=== PATIENT | male | born 1995 | race Caucasian/White ===

== ENCOUNTER 2019-02-17 11:41 | Emergency (ER) | payer OTHER ==
[~2019-02-17] VITALS: Ht 175 cm; Wt 57.0 kg
[2019-02-17] MEDS ORDERED: LACTATED RINGERS 1,000 ML IV ONE ×2 (12:19→13:34)
[2019-02-17 12:26] LABS: BASOPHILS % (AUTO) 0 % (0-10); EOSINOPHILS % (AUTO) 0 % (0-10); HEMATOCRIT 45 % (40-54); HEMOGLOBIN 16.1 G/DL (13.3-17.7); LYMPHOCYTES # (AUTO) 0.8 X 10^3 (1.0-4.0); LYMPHOCYTES % (AUTO) 4 % (12-44); MEAN CORPUSCULAR HEMOGLOBIN 30 PG (25-34); MEAN CORPUSCULAR HGB CONC 36 G/DL (32-36); MEAN CORPUSCULAR VOLUME 84 FL (80-99); MEAN PLATELET VOLUME 9.9 FL (7.4-10.4); MONOCYTES % (AUTO) 5 % (0-12); NEUTROPHILS # (AUTO) 20.3 X 10^3 (1.8-7.8); NEUTROPHILS % (AUTO) 92 % (42-75); PLATELET COUNT 229 10^3/uL (130-400); RED CELL DISTRIBUTION WIDTH 12.4 % (10.0-14.5); WHITE BLOOD COUNT 22.2 10^3/uL (4.3-11.0)
[2019-02-17 12:33] LABS: INR 1.1 (0.8-1.4); PROTHROMBIN TIME PATIENT 14.6 SEC (12.2-14.7)
[2019-02-17 12:40] LABS: ALANINE AMINOTRANSFERASE 14 U/L (0-55); ALBUMIN 4.9 GM/DL (3.2-4.5); ALKALINE PHOSPHATASE 67 U/L (40-136); BILIRUBIN,TOTAL 0.9 MG/DL (0.1-1.0); BUN/CREATININE RATIO 14; CALCIUM 9.9 MG/DL (8.5-10.1); CARBON DIOXIDE 18 MMOL/L (21-32); CHLORIDE 100 MMOL/L (98-107); CREATININE SERUM 1.01 MG/DL (0.60-1.30); GFR ESTIMATED > 60; GLUCOSE 103 MG/DL (70-105); POTASSIUM 3.6 MMOL/L (3.6-5.0); SODIUM 131 MMOL/L (135-145); TOTAL PROTEIN 8.7 GM/DL (6.4-8.2)
--- NOTE | 2019-02-17 12:42 | ED General ---
General Chief Complaint: Fever-Adult/Adol Stated Complaint: FEVER/NECK PAIN Nursing Triage Note: PT STATES HAS FEVER UP TO 103 LAST PM, PT STATES WAS SENT TO ED FROM URGENT CARE FOR POSS MENINGITIS. PT DENIES NECK PAIN BUT HAS STIFFNESS. HAS TAKEN TYLENOL AND MOTRN THIS AM. DENIES SORETHROAT COUGH OR URINARY SX. PT W MASK ON. PT STATES HAS HAD DIARRHEA X 3 TODAY Nursing Sepsis Screen: No Definite Risk Source of Information: Patient Exam Limitations: No Limitations (AARTI CRYSTAL STUDENT) History of Present Illness Date Seen by Provider: Feb 17, 2019 Time Seen by Provider: 12:30 Initial Comments The patient is a wd/wn thin 23 y/o male who is here with a chief complaint of fever. The patient reports that he had a temperature of 103 last night. He was seen at the walk-in clinic and referred to the ER for possible meningitis. He has been experiencing chills and headache with nausea and diarrhea. He also reports that he was "a little out of it" last night and feels "loopy" today. He also reports mild neck stiffness but moves his neck in all directions freely without pain. He denies any recent sick contacts. He denies vision changes, confusion, abdominal pains, shortness of breath, cough, or rashes. The denies any recent tick bites but does mention that he [place] a great deal of [place] in [place]. Timing/Duration: 12-24 Hours Associated Systoms: No Cough; Fever/Chills, Headaches, Malaise, Nausea/Vomiting; No Rash, No Shortness of Air (AARTI CRYSTAL STUDENT) Timing/Duration: 12-24 Hours Severity: Moderate Associated Systoms: Fever/Chills, Headaches, Weakness (CEE CARTER MD) Allergies and Home Medications Allergies Coded Allergies: No Known Drug Allergies (Unverified , 02/17/19) Patient Home Medication List Home Medication List Reviewed: Yes (CEE CARTER MD) Review of Systems Review of Systems Constitutional: chills, fever, malaise EENTM: No blurred vision, No double vision Respiratory: No cough, No short of breath Cardiovascular: No chest pain, No palpitations Gastrointestinal: No abdominal pain; diarrhea Genitourinary: No dysuria, No frequency Skin: No pruritus, No rash (AARTI CRYSTAL STUDENT) Constitutional: see HPI Respiratory: no symptoms reported Cardiovascular: no symptoms reported Gastrointestinal: diarrhea, nausea Psychiatric/Neurological: Headache; Denies Weakness (CEE CARTER MD) All Other Systems Reviewed Negative Unless Noted: Yes (CEE CARTER MD) Past Fjywpet-Wjsiyt-Qilsjj Hx Past Med/Social Hx: Reviewed Nursing Past Med/Soc Hx (CEE CARTER MD) Patient Social History Alcohol Use: Occasionally Uses Recreational Drug Use: No Smoking Status: Never a Smoker Recent Foreign Travel: No Contact w/Someone Who Travel: No Recent Infectious Disease Expo: No Recent Hopitalizations: No (AARTI CRYSTAL STUDENT) Seasonal Allergies Seasonal Allergies: Yes (AARTI CRYSTAL) Past Medical History Surgeries: No (FOOT SURG) (AARTI CRYSTAL STUDENT) Family Medical History Reviewed Nursing Family Hx (CEE CARTER MD) No Pertinent Family Hx (CEE CARTER MD) Physical Exam Vital Signs Vital Signs - First Documented 02/17/19 12:16 Temp 36.7 Pulse 137 Resp 18 B/P (MAP) 97/77 (84) Pulse Ox 99 (CEE CARTER MD) Vital Signs Capillary Refill : Less Than 3 Seconds (AARTI CRYSTAL STUDENT) Height, Weight, BMI Height: '" Weight: lbs. oz. kg; 18.00 BMI Method: General Appearance: No Apparent Distress, WD/WN Eyes: Bilateral Eye PERRL, Bilateral Eye EOMI HEENT: PERRL/EOMI, TMs Normal; No Photophobia Neck: Full Range of Motion, Non Tender Respiratory: Chest Non Tender, Lungs Clear, Normal Breath Sounds Cardiovascular: Regular Rate, Rhythm, No Edema, No Murmur Gastrointestinal: Normal Bowel Sounds, Non Tender, Soft Back: Normal Inspection, No CVA Tenderness, No Vertebral Tenderness Neurologic/Psychiatric: Alert, Oriented x3, No Motor/Sensory Deficits Skin: Normal Color, Warm/Dry (AARTI CRYSTAL STUDENT) General Appearance: No Apparent Distress, WD/WN HEENT: PERRL/EOMI; No Photophobia Neck: Full Range of Motion, Normal Inspection, Non Tender, Supple Respiratory: Lungs Clear, Normal Breath Sounds Cardiovascular: No Murmur, Tachycardia Gastrointestinal: Non Tender, Soft Back: Normal Inspection, No CVA Tenderness, No Vertebral Tenderness Extremity: Normal Range of Motion, Non Tender Neurologic/Psychiatric: Alert, Oriented x3 Skin: Normal Color, Warm/Dry; No Petechia, No Rash (CEE CARTER MD) Focused Exam Lactate Level 02/17/19 12:11: Lactic Acid Level 1.57 (CEE CARTER MD) Lactic Acid Level Laboratory Tests Test 02/17/19 12:11 Lactic Acid Level 1.57 MMOL/L (0.50-2.00) (CEE CARTER MD) Progress/Results/Core Measures Suspected Sepsis Recent Fever Within 48 Hours: No Infection Criteria Present: None New/Unexplained Altered Menta: No Sepsis Screen: No Definite Risk SIRS Temperature: Pulse: 137 Respiratory Rate: 18 Laboratory Tests 02/17/19 12:11: White Blood Count 22.2H Blood Pressure 97 /77 Mean: 84 02/17/19 12:11: Lactic Acid Level 1.57 Laboratory Tests 02/17/19 12:11: Platelet Count 229 (AARTI CRYSTAL MED STUDENT) Results/Orders Lab Results Laboratory Tests Test 02/17/19 12:11 02/17/19 14:30 Range/Units White Blood Count 22.2 H 4.3-11.0 10^3/uL Red Blood Count 5.40 4.35-5.85 10^6/uL Hemoglobin 16.1 13.3-17.7 G/DL Hematocrit 45 40-54 % Mean Corpuscular Volume 84 80-99 FL Mean Corpuscular Hemoglobin 30 25-34 PG Mean Corpuscular Hemoglobin Concent 36 32-36 G/DL Red Cell Distribution Width 12.4 10.0-14.5 % Platelet Count 229 130-400 10^3/uL Mean Platelet Volume 9.9 7.4-10.4 FL Neutrophils (%) (Auto) 92 H 42-75 % Lymphocytes (%) (Auto) 4 L 12-44 % Monocytes (%) (Auto) 5 0-12 % Eosinophils (%) (Auto) 0 0-10 % Basophils (%) (Auto) 0 0-10 % Neutrophils # (Auto) 20.3 H 1.8-7.8 X 10^3 Lymphocytes # (Auto) 0.8 L 1.0-4.0 X 10^3 Monocytes # (Auto) 1.0 0.0-1.0 X 10^3 Eosinophils # (Auto) 0.0 0.0-0.3 10^3/uL Basophils # (Auto) 0.0 0.0-0.1 10^3/uL Neutrophils % (Manual) 94 % Lymphocytes % (Manual) 3 % Monocytes % (Manual) 2 % Basophils % (Manual) 1 % Blood Morphology Comment NORMAL Prothrombin Time 14.6 12.2-14.7 SEC INR Comment 1.1 0.8-1.4 Activated Partial Thromboplast Time 29 24-35 SEC Sodium Level 131 L 135-145 MMOL/L Potassium Level 3.6 3.6-5.0 MMOL/L Chloride Level 100 98-107 MMOL/L Carbon Dioxide Level 18 L 21-32 MMOL/L Anion Gap 13 5-14 MMOL/L Blood Urea Nitrogen 14 7-18 MG/DL Creatinine 1.01 0.60-1.30 MG/DL Estimat Glomerular Filtration Rate > 60 BUN/Creatinine Ratio 14 Glucose Level 103 70-105 MG/DL Lactic Acid Level 1.57 0.50-2.00 MMOL/L Calcium Level 9.9 8.5-10.1 MG/DL Corrected Calcium 8.5-10.1 MG/DL Total Bilirubin 0.9 0.1-1.0 MG/DL Aspartate Amino Transf (AST/SGOT) 20 5-34 U/L Alanine Aminotransferase (ALT/SGPT) 14 0-55 U/L Alkaline Phosphatase 67 40-136 U/L C-Reactive Protein High Sensitivity 8.93 H 0.00-0.50 MG/DL Total Protein 8.7 H 6.4-8.2 GM/DL Albumin 4.9 H 3.2-4.5 GM/DL Urine Color YELLOW Urine Clarity CLEAR Urine pH 6 5-9 Urine Specific [place] 1.020 1.016-1.022 Urine Protein 2+ H NEGATIVE Urine Glucose (UA) NEGATIVE NEGATIVE Urine Ketones 4+ H NEGATIVE Urine Nitrite NEGATIVE NEGATIVE Urine Bilirubin NEGATIVE NEGATIVE Urine Urobilinogen NORMAL NORMAL MG/DL Urine Leukocyte Esterase NEGATIVE NEGATIVE Urine RBC (Auto) 1+ H NEGATIVE Urine RBC NONE /HPF Urine WBC NONE /HPF Urine Crystals NONE /LPF Urine Bacteria TRACE /HPF Urine Casts NONE /LPF Urine Mucus NEGATIVE /LPF Urine Culture Indicated CULTURE PENDING (CEE CARTER MD) Micro Results Microbiology 02/17/19 Influenza Types A,B Antigen (EUGENIA) - Final, Complete (CEE CARTER MD) My Orders Orders - CEE CARTER MD Cbc With Automated Diff (02/17/19 12:19) Comprehensive Metabolic Panel (02/17/19 12:19) Blood Culture (02/17/19 12:19) Sputum Culture (02/17/19 12:19) Urinalysis (02/17/19 12:19) Urine Culture (02/17/19 12:19) Protime With Inr (02/17/19 12:19) Partial Thromboplastin Time (02/17/19 12:19) Chest 1 View, Ap/Pa Only (02/17/19 12:19) Ed Iv/Invasive Line Start (02/17/19 12:19) Ed Iv/Invasive Line Start (02/17/19 12:19) Vital Signs Adult Sepsis Patie Q15M (02/17/19 12:19) O2 (02/17/19 12:19) Remove Rings In Anticipation O (02/17/19 12:19) Lactic Acid Analyzer (02/17/19 12:19) Influenza A And B Antigens (02/17/19 12:19) Lactated Ringers (Lr 1000 Ml Iv Solution (02/17/19 12:19) Manual Differential (02/17/19 12:11) Hs C Reactive Protein (02/17/19 12:48) Tick Panel With Lyme Eia (02/17/19 12:51) Ed Iv/Invasive Line Start (02/17/19 13:34) Lactated Ringers (Lr 1000 Ml Iv Solution (02/17/19 13:34) Acetaminophen Tablet (Tylenol Tablet) (02/17/19 13:34) Ketorolac Injection (Toradol Injection) (02/17/19 13:34) (CEE CARTER MD) Medications Given in ED Current Medications Medications Dose Ordered Sig/Noah Route Start Time Stop Time Status Last Admin Dose Admin Lactated Ringer's 1,000 ml @ 0 mls/hr Q0M ONCE IV 02/17/19 12:19 02/17/19 12:22 DC 02/17/19 12:30 1,000 MLS/HR Lactated Ringer's 1,000 ml @ 0 mls/hr Q0M ONCE IV 02/17/19 13:34 02/17/19 13:36 DC 02/17/19 13:45 1,000 MLS/HR (CEE CARTER MD) Vital Signs/I&O 02/17/19 12:16 Temp 36.7 Pulse 137 Resp 18 B/P (MAP) 97/77 (84) Pulse Ox 99 (CEE CARTER MD) Vital Signs/I&O Capillary Refill : Less Than 3 Seconds (AARTI CRYSTAL MED STUDENT) Blood Pressure Mean: 84 Progress Note : Time: 12:45 Progress Note The patient was interviewed/examined and is resting comfortably in the exam r oom. He will be evaluated with standard sepsis protocol due to elevated HR, low BP, and elevated WBC. Tick panel will also be ordered due to his frequent hunting activities. (AARTI CRYSTAL MED STUDENT) Progress Note : Progress Note I have seen and evaluated the patient and agree with above except as indicated. Have directed the plan of care. Patient is here with persistent fever, diarrhea and overall not feeling well over the last 24 hours. Went to urgent care center him over here because he complained of neck stiffness. Does admit to some neck pain without headache currently and overall actually much better than previous. Has full range of motion of the neck without limitations. Admits to [place] in the [place] every day scanning for hunting areas. No recent tick bites that he knows of but has had in the past. Plan is for IV, labs, UA, chest x-ray, blood cultures and lactic acid as well as LR 1 L bolus. 1400: We have added a second liter of LR bolus and also given Tylenol 1 g by mouth and Toradol 30 mg IV. Patient states he is overall better. We did discuss that workup may include lumbar puncture and he would like to try to avoid this if at all possible. White count is elevated and CRP is as well but this does not surprise me in the setting of diarrhea. That being said we need to see more improvement. This was discussed with the patient and he agrees. We will continue to monitor currently and reassess. 1550: Patient is overall doing much better. Second liter of fluid seems to have helped significantly. He has no headache currently and no neck discomfort. He did have 4+ ketones in his urine indicating that he is quite dry. I think this has added to his elevation in his white count as well. No diarrhea during the stay. Fever is improving. I did discuss all of this at length with the patient, his mother and girlfriend and all are in agreement that he is willing to and wants to go home. I think it would be safe to at this point with the understanding that if there is any changes he will return. Patient verbalize understanding. Discharged home with return precautions. Patient verbalize understanding of instructions and agreement with plan. (CEE CARTER MD) Diagnostic Imaging Diagonstic Imaging: Xray Plain Films/CT/US/NM/MRI: chest Comments [facility] [place], [place] NAME: KERRI LEES [facility] REC#: [id number] PT STATUS: REG ER : 1995 PHYSICIAN: CEE CARTER MD ADMIT DATE: 02/17/19/ER Draft Date of Exam:02/17/19 CHEST 1 VIEW, AP/PA ONLY INDICATION: Febrile. Nausea and vomiting. FINDINGS: Portable chest. Lungs are well-aerated and clear. Heart is not enlarged. No pulmonary edema. No pneumothorax or pleural effusion. No bony abnormalities. IMPRESSION: Negative portable chest. Dictated on workstation # [id number] Dict: 02/17/19 1245 Trans: 02/17/19 1247 [facility] [id number] Interpreted by: MARY JANE BLACKMAN MD Electronically signed by: (CEE CARTER MD) Departure Impression Primary Impression: Viral illness Additional Impressions: Fever Qualified Codes: R50.9 - Fever, unspecified Acute diarrhea Dehydration Disposition: HOME, SELF-CARE Condition: Improved Departure-Patient Inst. Referrals: NO,LOCAL PHYSICIAN (PCP/Family) Primary Care Physician Patient Instructions: Dehydration, Adult (DC), Diarrhea in Adolescents and Adults, Fever, Adult (DC) Add. Discharge Instructions: All discharge instructions reviewed with patient and/or family. Voiced understanding. Drink plenty of fluids. Start with a clear liquid diet and then advance as tolerated. You may take ibuprofen 600 mg every 8 hours as needed for fever or pain. You may take Tylenol/acetaminophen 1000 mg every 6-8 hours as needed for fever or pain. Follow-up with your Dr. in a few days for recheck. Return for worsening, fever, vomiting, weakness, breathing problems, increasing headache, neck pain or stiffness, confusion or other concerns as needed. There is concerns that this may be a tick related illness. You will start and complete the antibiotics as directed. If it is positive you will be called by the end of the week. Scripts Doxycycline Hyclate (Doxycycline Hyclate) 100 Mg Tablet 100 MG PO BID, #20 TAB 0 Refills Prov: CEE CARTER MD 02/17/19 AARTI CRYSTAL MED STUDENT Feb 17, 2019 12:42 CEE CARTER MD Feb 17, 2019 13:27
--- NOTE | 2019-02-17 12:47 | Diagnostic Imaging Report ---
INDICATION: Febrile. Nausea and vomiting. FINDINGS: Portable chest. Lungs are well-aerated and clear. Heart is not enlarged. No pulmonary edema. No pneumothorax or pleural effusion. No bony abnormalities. IMPRESSION: Negative portable chest. Dictated by: Dictated on workstation # [id number]
[2019-02-17 12:58] LABS: BASOPHILS % (MANUAL) 1 %; LYMPHOCYTES % (MANUAL) 3 %; MONOCYTES % (MANUAL) 2 %; NEUTROPHILS % (MANUAL) 94 %; RBC MORPH NORMAL
[2019-02-17] MEDS ORDERED: ACETAMINOPHEN 500 MG TAB (TYLENOL) PO STA (13:34)
[2019-02-17] MEDS ORDERED: KETOROLAC 30 MG/ML VIAL IVP STA (13:34)
--- NOTE | 2019-02-17 13:40 | NUR ---
TEMP 38.2
--- NOTE | 2019-02-17 14:20 | NUR ---
TEMP 38.2 AT THIS X
[2019-02-17 14:43] LABS: BILIRUBIN,URINE NEGATIVE (NEGATIVE); CLARITY,URINE CLEAR; COLOR,URINE YELLOW; GLUCOSE, URINE (UA) NEGATIVE (NEGATIVE); KETONES,URINE 4+ (NEGATIVE); LEUKOCYTE ESTERASE ,URINE NEGATIVE (NEGATIVE); NITRITE,URINE NEGATIVE (NEGATIVE); PH,URINE 6 (5-9); PROTEIN,URINE 2+ (NEGATIVE); UROBILINOGEN,URINE NORMAL (NORMAL)
[2019-02-17 14:53] LABS: BACTERIA,URINE TRACE /HPF
--- NOTE | 2019-02-17 15:06 | NUR ---
37.4 TEMP AT THIS X
[2019-02-17] MEDS ORDERED: DOXY100T2 PO (15:57)
[2019-02-17 16:04] VITALS: BP 116/69
== END 2019-02-17 16:04 | disposition home or self-care (01) ==
LOC: ER 11:43
DX: B34.9 Viral infection, unspecified (principal); R19.7 Diarrhea, unspecified; E86.0 Dehydration
CPT/HCPCS: 36415; 71045; 80053; 81000; 83605; 85007; 85027; 85610; 85730; 86141; 86618; 86666; 86668; 86757; 87040; 87088; 87804; 96361; 96374